=== PATIENT | male | born 1960 | race Two or more races ===

== ENCOUNTER 2023-12-28 08:58 | Day surgery (SDC) | payer MEDICAID ==
[2023-12-26 15:38] LABS: Basophils # (auto) 0.1 10 ^3/uL (0-0.2); Basophils % (auto) 0.7 % (0.0-2.0); Eosinophils # (auto) 0.2 10 ^3/uL (0-0.8); Eosinophils % (auto) 3.5 % (0.0-7.0); Hematocrit 42.5 % (41.0-53.0); Hemoglobin 14.2 g/dL (13.5-17.5); Lymphocytes # (auto) 2.1 10 ^3/uL (0.4-5.4); Lymphocytes % (auto) 30.2 % (10.0-50.0); Mean Corpuscular Hemoglobin 29.3 pg (28.0-32.0); Mean Corpuscular Hgb Conc. 33.5 g/dL (32.0-36.0); Mean Corpuscular Volume 87.6 fL (80.0-100.0); Monocytes # (auto) 0.6 10 ^3/uL (0-1.3); Monocytes % (auto) 7.9 % (0.0-12.0); Neutrophils # (auto) 4.1 10 ^3/uL (1.6-8.6); Neutrophils % (auto) 57.7 % (37.0-80.0); Nucleated Red Blood Cells % 0.1 %; Red Blood Cells 4.85 10^6/uL (4.5-5.90); Red Cell Distribution Width 13.6 % (11.8-14.3); White Blood Cell 7.1 10^3/uL (4.4-10.8)
[2023-12-26 16:08] LABS: Alanine Aminotransferase 16 U/L (7-40); Albumin 4.3 g/dL (3.2-4.8); Alkaline Phosphatase 51 U/L (46-116); Anion Gap 5 (5-15); Aspartate Aminotransferase 10 U/L (13-40); BUN/Creatinine Ratio 12.4 (10.0-20.0); Bilirubin, Total 0.4 mg/dL (0.2-1.0); Blood Urea Nitrogen 12 mg/dL (9-23); Calcium 9.8 mg/dL (8.7-10.4); Carbon Dioxide 26 mmol/L (20-30); Chloride 108 mmol/L (98-107); Glucose 96 mg/dL (74-106); Potassium 4.3 mmol/L (3.5-5.1); Sodium 139 mmol/L (136-145); Total Protein 7.1 g/dL (5.7-8.2)
[2023-12-26 16:18] LABS: INR 0.97 (0.9-1.15); Partial Thromboplastin Time 26.2 SEC (24.5-34.5); Prothrombin Time 10.3 sec (9.3-11.8)
[2023-12-27 08:34] LABS: Urine Blood Negative /uL (Negative); Urine Clarity Clear (Clear); Urine Protein, UAD Negative (Negative); Urine Specific Gravity 1.006 (1.001-1.035); Urine Urobilinogen Normal (Negative); Urine WBC 1 /hpf (0 - 3); Urine pH 6.5 (5.0-9.0)
[2023-12-27 08:37] LABS: Urine Color Straw (Yellow)
[~2023-12-28] VITALS: Ht 185.4 cm; Wt 90.7 kg
[2023-12-28] MEDS ORDERED: ceFAZolin 2 GM/D5W50ml 50 ML IV ONE (10:27)
[2023-12-28 10:30] VITALS: TEMP 97.7
[2023-12-28] MEDS ORDERED: GABAPENTIN 400 MG CAP ONE (10:45)
[2023-12-28] MEDS ORDERED: CELECOXIB 100 MG CAP ONE (10:45)
[2023-12-28] MEDS ORDERED: GABAPENTIN 400 MG CAP PO ONE (10:45)
[2023-12-28] MEDS ORDERED: ACETAMINOPHEN IV 1000 MG/100ML (10MG/ML) IV ONE (10:45)
[2023-12-28] MEDS ORDERED: ACETAMINOPHEN IV 100 ML IV ONE (10:45)
[2023-12-28] MEDS ORDERED: CELECOXIB 100 MG CAP PO ONE (10:45)
[2023-12-28] MEDS ORDERED: LIDOCAINE HCL 2 %PF INJ 10ML AMP IJ ONE (10:48)
[2023-12-28] MEDS ORDERED: ONDANSETRON HCL 4 MG/2 ML VIAL ONE (10:52)
[2023-12-28] MEDS ORDERED: DexAMETHasone SOD PHOS 10MG/1ML VIAL INJ ONE (10:52)
[2023-12-28] MEDS ORDERED: KETOROLAC TROMETH 30 MG/ML 1ML VIAL ONE (10:52)
[2023-12-28] MEDS ORDERED: GLYCOPYRROLATE 0.2 MG/ML 1ML VIAL ONE (10:53)
[2023-12-28] MEDS ORDERED: fentaNYL CITRATE 100 MCG/2 ML VL ONE (10:53)
[2023-12-28] MEDS ORDERED: KETAMINE 50mg/ML 1ml syringe ONE (10:53)
[2023-12-28] MEDS ORDERED: PROPOFOL 10 MG/ML 20 ML IV ONE (10:53)
[2023-12-28] MEDS ORDERED: LIDOCAINE 1% HCL (LOCAL ANESTH.) INJ 20ML MDV ONE (10:54)
[2023-12-28] MEDS ORDERED: ePHEDrine SULFATE 50 MG/ML AMP ONE (11:47)
[2023-12-28 12:11] VITALS: O2SAT 98
[2023-12-28] MEDS ORDERED: fentaNYL CITRATE 100 MCG/2 ML VL IV PRN (12:30)
[2023-12-28] MEDS ORDERED: hydrALAZINE HCL 20 MG/ML VL IV PRN (12:30)
[2023-12-28] MEDS ORDERED: FLUMAZENIL 0.1 MG/ML INJ 10ML MDV IV PRN (12:30)
[2023-12-28] MEDS ORDERED: NALOXONE HCL 0.4 MG/ML VIAL IV PRN (12:30)
[2023-12-28] MEDS ORDERED: ePHEDrine SULFATE 50 MG/ML AMP IV PRN (12:30)
[2023-12-28] MEDS ORDERED: ONDANSETRON HCL 4 MG/2 ML VIAL IV PRN (12:30)
[2023-12-28] MEDS ORDERED: oxyCODONE HCL 5MG TAB PO PRN (12:30)
[2023-12-28] MEDS ORDERED: LABETALOL HCL 5 MG/ML 4ML SYRINGE IV PRN (12:30)
[2023-12-28] MEDS ORDERED: HYDROmorphone HCL 2 MG/ML VL/or syr ONE (12:58)
[2023-12-28] MEDS: HYDROmorphone HCL 2 MG/ML VL/or syr IV PRN (12:59)
[2023-12-28 14:37] VITALS: BP 128/84; PULSE 59; RESP 14; O2SAT 95
== END 2023-12-28 13:45 | disposition home or self-care (01) ==
LOC: SUR 08:58
PROVIDERS: ATTEND Surgery
DX: K40.90 Unilateral inguinal hernia, without obstruction or gangrene, not specified as recurrent (principal); E66.9 Obesity, unspecified; Z68.26 Body mass index [BMI] 26.0-26.9, adult; Z86.16 Personal history of COVID-19; Z87.891 Personal history of nicotine dependence
CPT/HCPCS: 36415; 49505; 80053; 81001; 85025; 85610; 85730; 86850; 86900; 86901; 88302; C1781; J0131; J0690; J1100; J1170; J1885; J2405; J2704; J2001